=== PATIENT | male | born 1975 | race Two or more races ===

== ENCOUNTER 2021-12-25 21:30 | Emergency (ER) | payer MEDICAID, OTHER ==
[~2021-12-25] VITALS: Ht 182.9 cm; Wt 93.0 kg
[2021-12-25 23:07] LABS: Basophils # (auto) 0.1 10 ^3/uL (0-0.2); Basophils % (auto) 0.6 % (0.0-2.0); Eosinophils # (auto) 0.3 10 ^3/uL (0-0.8); Hemoglobin 14.7 g/dL (13.5-17.5); Lymphocytes # (auto) 3.4 10 ^3/uL (0.4-5.4); Lymphocytes % (auto) 25.2 % (10.0-50.0); Mean Corpuscular Hemoglobin 28.2 pg (28.0-32.0); Mean Corpuscular Hgb Conc. 32.8 g/dL (32.0-36.0); Mean Corpuscular Volume 86.1 fL (80.0-100.0); Monocytes # (auto) 1.4 10 ^3/uL (0-1.3); Monocytes % (auto) 10.5 % (0.0-12.0); Neutrophils # (auto) 8.2 10 ^3/uL (1.6-8.6); Neutrophils % (auto) 61.7 % (37.0-80.0); Red Blood Cells 5.23 10^6/uL (4.5-5.90); Red Cell Distribution Width 13.4 % (11.8-14.3); White Blood Cell 13.3 10^3/uL (4.4-10.8)
[2021-12-25] MEDS ORDERED: ASPirin 325 MG TAB PO ONE (23:15)
[2021-12-25 23:27] LABS: Albumin 3.6 g/dL (3.4-5.0); BUN/Creatinine Ratio 19.8; Calcium 8.7 mg/dL (8.5-10.1); Potassium 3.9 mmol/L (3.5-5.1)
[2021-12-25 23:30] LABS: Bilirubin, Total 0.2 mg/dL (0.2-1.0); Total Protein 7.5 g/dL (6.4-8.2)
[2021-12-26] MEDS ORDERED: KETOROLAC TROMETH 60MG/2ML VIAL IM ONE
[2021-12-26 03:11] VITALS: BP 144/90
== END 2021-12-26 03:13 | disposition home or self-care (01) ==
LOC: ER 21:42
DX: R07.89 Other chest pain (principal); F17.210 Nicotine dependence, cigarettes, uncomplicated
CPT/HCPCS: 36415; 71045; 80053; 83880; 84484; 85025; 85379; 93005; 96372; 99285; J1885

== ENCOUNTER 2023-12-08 18:41 | Emergency (ER) | payer MEDICAID ==
[~2023-12-08] VITALS: Ht 185.4 cm; Wt 104.5 kg
[2023-12-08 20:41] VITALS: BP 134/88; PULSE 94; RESP 14; TEMP 98.9; O2SAT 97
[2023-12-08 20:52] LABS: Urine Bacteria None Seen /hpf (None Seen)
[2023-12-08 21:27] LABS: Urine Blood Negative /uL (Negative); Urine Clarity Clear (Clear); Urine Color Yellow (Yellow); Urine Mucus FEW (None Seen); Urine Protein, UAD TRACE (Negative); Urine Specific Gravity 1.029 (1.001-1.035); Urine Urobilinogen Normal (Negative); Urine WBC 4 /hpf (0 - 3); Urine pH 5.5 (5.0-9.0)
[2023-12-08] MEDS ORDERED: IBUP-1455 PO (22:39)
[2023-12-08] MEDS: KETOROLAC TROMETH 60MG/2ML VIAL IM ONE (23:33)
== END 2023-12-08 23:35 | disposition home or self-care (01) ==
LOC: ER 18:41
DX: M25.461 Effusion, right knee (principal); F17.210 Nicotine dependence, cigarettes, uncomplicated; Z87.442 Personal history of urinary calculi
CPT/HCPCS: 73562; 81001; 96372; 99284; J1885